=== PATIENT | male | born 1965 | race Caucasian/White ===

== ENCOUNTER 2022-09-30 19:46 | Emergency (ER) | payer OTHER, SELFPAY ==
[2022-09-30 19:51] VITALS: BP 146/102; PULSE 69; RESP 16; TEMP 36.3; O2SAT 98
--- NOTE | 2022-09-30 20:00 | ED.WOUNDLAC ---
HPI - Wound/Laceration General Time Seen by Provider: 20:11 Date Seen: 09/30/22 Chief Complaint: Laceration/Wound Stated Complaint: L big toe laceration Time Seen by Provider: 09/30/22 19:59 Source: patient and family Mode of arrival: ambulatory Limitations: no limitations History of Present Illness HPI narrative: 57-year-old male who presents today with a laceration of the left great toe. Unsure if this was caused by a dog gate falling on it or the dog itself. Tetanus shot is up-to-date. No other injuries. Related Data Allergies Allergy/AdvReac Type Severity Reaction Status Date / Time No Known Drug Allergies Allergy Verified 09/30/22 19:51 Exam Narrative: Exam Narrative: General: well nourished , NAD Head: Atraumatic and normocephalic ENT: External ears and external nose are normal Eyes: Conjunctiva clear, pupils are equal reactive, external ocular motions are intact Neck: Full spontaneous range of motion of the neck Lungs: No respiratory distress Musculoskeletal: Laceration on the dorsum of the great toe just over the IP joint. Patient is unable to extend the toe at the IP joint. Neurologic: No gross focal neurologic deficits Skin: No rashes Psych: Mood and affect are appropriate Const: Vital Signs, click to edit/add: Vital Signs - 24 hr 09/30/22 19:51 Temperature 97.3 F L Pulse Rate [Left P ulse Oximeter] 69 Respiratory Rate 16 Blood Pressure [Ri ght Upper Arm] 146/102 H Pulse Oximetry 98 Oxygen Delivery Me thod Room Air Course Course Hospital Course: Patient seen and examined, prior records are reviewed. Patient presents today with a laceration of the left great toe with inability to extend the toe at the IP joint concerning for tendon laceration. X-rays are ordered and will discuss with Podiatry. Tetanus is up-to-date. Reevaluation(s) Time of Reevaluation #1: 21:14 Reevaluation #1: Care was discussed with Dr. Stout, podiatry. Recommends irrigating the wound to examine for joint capsule injury and look for tendon edges. X-ray of the foot independently interpreted by me negative for any acute findings, no fracture or foreign body. On reexamination, the wound actually looks fairly superficial in the skin and subcutaneous tissue but no deeper than that, it may be that patient has a deficit of extension due to pain and loss of soft tissue. The FHL tendon is palpable along its course and not retracted. Laceration repair, left great toe, 2 cm full-thickness laceration. Risks and benefits discussed with the patient, verbal consent was obtained. Lidocaine 1% was injected along the wound edges, 2 mL total. Wound was explored and no tendon edges are seen, no invasion into the joint space. Wound was cleansed with wound cleanser and irrigated with 1 L of normal saline. Wound was closed with 5 4-0 simple interrupted sutures. Patient tolerated this well, placed in a postop boot and discharged with follow-up instructions. Vital Signs Vital signs: Initial Vital Signs Temperature 97.3 F L 09/30/22 19:51 Temperature Source Temporal Artery Scan 09/30/22 19:51 Pulse Rate 69 09/30/22 19:51 Pulse Rhythm Regular 09/30/22 19:51 Respiratory Rate 16 09/30/22 19:51 Blood Pressure 146/102 H 09/30/22 19:51 Blood Pressure Mean 116 H 09/30/22 19:51 Blood Pressure Position Sitting 09/30/22 19:51 Pulse Oximetry 98 09/30/22 19:51 Oxygen Delivery Method Room Air 09/30/22 19:51 Vital Signs Temperature 97.3 F L 09/30/22 19:51 Pulse Rate 69 09/30/22 19:51 Respiratory Rate 16 09/30/22 19:51 Blood Pressure 146/102 H 09/30/22 19:51 Pulse Oximetry 98 09/30/22 19:51 Oxygen Delivery Method Room Air 09/30/22 19:51 Temperature 97.3 F L 09/30/22 19:51 Pulse Rate 69 09/30/22 19:51 Respiratory Rate 16 09/30/22 19:51 Blood Pressure 146/102 H 09/30/22 19:51 Pulse Oximetry 98 09/30/22 19:51 Oxygen Delivery Method Room Air 09/30/22 19:51 Discharge Plan Discharge Clinical Impression: Laceration of toe of left foot Patient Disposition: Home, Self-Care Condition: Stable Instructions: Laceration (DC) Additional Instructions: Wear the hard-soled shoe when you are up and around. Elevate the foot and toe as able in the next 24-48 hours. Ice 15-20 minutes at a time every 2-3 hours while awake. Follow-up with podiatry, call tomorrow for an appointment. Sutures out in 2 weeks with Podiatry or your primary care provider. Do not submerge. You can get the wound wet in 24 hours. Activity Level: Activity as Tolerated Discharge Diet: Regular Follow Up/Referrals: Kostas Olivares MD [Primary Care Provider] - Darshan Stout DPM [Staff Physician] - Stand Alone Forms: [employer] Info Instructions
--- NOTE | 2022-09-30 20:13 | CRLHL7_ITS ---
For Patients: As a result of the Cures Act, medical imaging exams and procedure reports are released immediately into your electronic medical record. You may view this report before your referring provider. If you have questions, please contact your health care provider. Indication: Trauma. Technique: Left foot, 1st phalanx, 3 views. Comparison: None. Findings: Bones: Alignment is normal. No fractures or bone lesions. Joint spaces: Unremarkable. Soft tissues: Soft tissue swelling along the dorsal aspect at the 1st proximal phalanx.. Impression: No acute fractures or dislocations identified. Dictated by Skylar Bustamante MD @ 09/30/2022 9:27:52 PM (Electronically Signed)
--- NOTE | 2022-09-30 21:23 | ED.NURSE ---
Ortho shoe applied.
== END 2022-09-30 21:28 | disposition home or self-care (01) ==
PROVIDERS: Emergency Provider Family Medicine; PCP Family Medicine
DX: S92.405A Nondisplaced unspecified fracture of left great toe, initial encounter for closed fracture (principal); W22.8XXA Striking against or struck by other objects, initial encounter
CPT/HCPCS: 12001; 73660; 99283